=== PATIENT | female | born 1990 | race Caucasian/White ===

== ENCOUNTER 2024-02-14 09:37 | Emergency (ER) | payer MEDICAID ==
[~2024-02-14] VITALS: Ht 170.2 cm; Wt 57.0 kg
[2024-02-14 09:45] VITALS: BP 138/78; PULSE 92; RESP 17; TEMP 98.4; O2SAT 96
== END 2024-02-14 10:57 | disposition home or self-care (01) ==
LOC: ER 09:38 → EDBD 09:38 → ER 10:57
DX: M25.561 Pain in right knee (principal)
CPT/HCPCS: 99284